=== PATIENT | male | born 1995 | race Caucasian/White ===

== ENCOUNTER 2016-07-11 21:47 | Emergency (ER) | payer BC ==
--- NOTE | 2016-07-11 21:57 | UC ---
UC General HPI - HPI Summary HPI Summary: The patient comes in today for: 1. Vomiting: Onset: 18 hours ago. Palliative/provocative: Eating makes the vomiting worse. Quality: STomach--throbbing, sharp. Region: Abdomen Severity: 8/10 Time: Constant. Associated symptoms: Vomitin times over the last 18 hours. No blood in the vomit. No coffee ground emesis. Stomach: pain is present. Fatigue: Fevers: No temperature taken, but sweating before vomiting. Diarrhea: 10 stools today. No mucous, pus or blood. Travel: [place]. Urination: "I've only urinated 2-3 time today. * - History of Current Complaint Stated Complaint: VOMITING SINCE 3 AM Time Seen by Provider: 07/11/16 21:48 Hx Obtained From: Patient, Family/Network Support Engineer - Allergy/Home Medications Allergies/Adverse Reactions: Allergies Allergy/AdvReac Type Severity Reaction Status Date / Time Penicillins Allergy Unknown Verified 07/11/16 21:51 Reaction Details PMH/Surg Hx/FS Hx/Imm Hx Previously Healthy: Yes Endocrine History Of: Denies: Diabetes, Thyroid Disease, Hyperthyroidism, Hypothyroidism, Dyslipidemia Cardiovascular History Of: Denies: Cardiac Disorders, Hypertension, Pacemaker/ICD, Myocardial Infarction , Congestive Heart Failure, Atrial Fibrillation, Deep Vein Thrombosis, Bleeding Disorders Respiratory History Of: Denies: COPD, Asthma, Bronchitis, Pneumonia, Pulmonary Embolism GI/ History Of: Denies: Gastroesophageal Reflux, Ulcer, Gastrointestinal Bleed, Gall Bladder Disease, Kidney Stones, Diverticulitis, Renal Disease, Urosepsis Neurological History Of: Denies: TIA, CVA, Dementia, Seizures, Migraine Psychological History Of: Denies: Anxiety, Depression, Bipolar Disorder, Schizophrenia, Post Traumatic Stress Disorder Cancer History Of: Denies: Lung Cancer, Colorectal Cancer, Breast Cancer, Prostate Cancer, Cervical Cancer Other History Of: Negative For: HIV, Hepatitis B, Hepatitis C - Surgical History Surgical History: None - Family History Known Family History: Positive: Cardiac Disease Negative: Hypertension - Social History Occupation: Employed Full-time Alcohol Use: None Substance Use Type: None Smoking Status (MU): Never Smoked Tobacco - Immunization History Most Recent Influenza Vaccination: Not the Season Review of Systems Constitutional: Negative Skin: Negative Eyes: Negative ENT: Negative, Sore Throat - Declines any strep testing. Respiratory: Negative Cardiovascular: Negative Gastrointestinal: Abdominal Pain Genitourinary: Negative All Other Systems Reviewed And Are Negative: Yes Physical Exam Triage Information Reviewed: Yes Appearance: No Pain Distress, Well-Nourished, Other: - He was holding a basin in his lap for most of the time I was in there. But he never vomited. He never left for the bathroom either for BM. Vital Signs Reviewed: Yes Eyes: Positive: Conjunctiva Clear. Negative: Discharge ENT: Positive: Hearing grossly normal. Negative: Pharyngeal erythema, Nasal congestion, Nasal drainage, TM bulging, TM dull, TM red, Tonsillar swelling, Tonsillar exudate Dental: Negative: Gross Decay/Caries @, Dental Fracture @ Neck: Positive: Supple, Nontender, No Lymphadenopathy Respiratory: Positive: Lungs clear, No respiratory distress, No accessory muscle use. Negative: Rhonchi, Wheezing Cardiovascular: Positive: RRR, No Murmur Abdomen Description: Positive: No Organomegaly, Soft, Peritoneal Signs. Negative: Nontender - He has tenderness in all four quadrants and rebound and percussion tenderness., Distended, Guarding Bowel Sounds: Positive: Present Musculoskeletal: Positive: Strength Intact, ROM Intact Neurological: Positive: Alert, Muscle Tone Normal Psychological: Positive: Normal Response To Family, Age Appropriate Behavior, Consolable Skin: Negative: rashes, breakdown Re-Evaluation - Re-Evaluation First Eval Change: Improved - The patient was improved but to what degree was not clear. Again, after discussing his diagnostic and treatment options, the patient and his mother decided that he would go home with another Zofran and try increased oral hydration at home. She said that if he does not do well, she will take him to the ER at that time. My recommendation to go to the ER was still the same. Course/Dx - Course Course Of Treatment: Patient and mother were told that we can give IV fluids and anti-nausea medication, but considering how tender his abdomen is, would recommend an ER visit. However, the only thing that his mother and the patient wanted to do was try oral Zofran. I ordered this to re-evaluate him later. - Differential Dx - Multi-Symptom Provider Diagnoses: Gastroenteritis. Dehydration. Abdominal pain with peritoneal signs. Discharge - Discharge Plan Condition: Stable Disposition: AGAINST MEDICAL ADVICE Forms: *Work Release Referrals: No Primary Care Phys,NOPCP [Primary Care Provider] -
[2016-07-11] MEDS ORDERED: Ondansetron ODT TAB* 4 MG PO ONE ×2 (22:12→22:44)
[2016-07-11 22:15] VITALS: BP 148/88
== END 2016-07-11 23:00 | disposition left against medical advice (07) ==
LOC: UCCORT 21:47
DX: K52.9 Noninfective gastroenteritis and colitis, unspecified (principal); E86.0 Dehydration; R10.84 Generalized abdominal pain; Z88.0 Allergy status to penicillin
CPT/HCPCS: 99212; A9270-GY; G0463